=== PATIENT | male | born 1990 | race Caucasian/White ===

== ENCOUNTER 2016-10-27 07:47 | Emergency (ER) | payer MEDICAID, OTHER ==
[~2016-10-27] VITALS: Ht 180.3 cm; Wt 125.0 kg
[~2016-10-27 07:47] MED LIST: NOCURR
[2016-10-27 07:49] VITALS: BP 153/100
[2016-10-27] MEDS ORDERED: PERTUSS(ACELL),DIPH,TET VAC/PF 0.5 ML VIAL IM ONE (08:00)
[2016-10-27] MEDS ORDERED: LIDOCAINE HCL BUFFERED 1% 20 ML VIAL INJ ONE (08:00)
== END 2016-10-27 08:54 | disposition home or self-care (01) ==
LOC: EMS 07:48
DX: S61.212A Laceration without foreign body of right middle finger without damage to nail, initial encounter (principal); S61.214A Laceration without foreign body of right ring finger without damage to nail, initial encounter; S61.216A Laceration without foreign body of right little finger without damage to nail, initial encounter; F17.200 Nicotine dependence, unspecified, uncomplicated; F12.90 Cannabis use, unspecified, uncomplicated; Z88.0 Allergy status to penicillin; X58.XXXA Exposure to other specified factors, initial encounter; Y93.89 Activity, other specified; Y92.89 Other specified places as the place of occurrence of the external cause; Y99.8 Other external cause status
CPT/HCPCS: 12002; 99283; J3490; 90715

== ENCOUNTER 2018-05-30 23:02 | Emergency (ER) | payer MEDICAID, OTHER ==
[~2018-05-30] VITALS: Ht 180.3 cm; Wt 118.2 kg
[2018-05-30] MEDS ORDERED: LIDOCAINE 1% 10 ML VIAL INJ ONE (23:30)
[2018-05-30] MEDS ORDERED: IBUPROFEN 800 MG TABLET PO ONE (23:30)
[2018-05-30] MEDS ORDERED: POVIDONE-IODINE 10% 15 ML SOLUTION UD TP ONE (23:30)
[2018-05-30] MEDS ORDERED: PERTUSS(ACELL),DIPH,TET VAC/PF 0.5 ML VIAL IM ONE (23:30)
[2018-05-31] MEDS ORDERED: BACITRACIN 0.9 GM PACKET OINTMENT TP ONE (01:15)
[2018-05-31 01:29] VITALS: BP 138/80
[2018-05-31] MEDS ORDERED: LIDOCAINE/PF 1% 2 ML VIAL IM ONE (01:30)
== END 2018-05-31 01:31 | disposition home or self-care (01) ==
LOC: EMS 23:03
DX: S61.210A Laceration without foreign body of right index finger without damage to nail, initial encounter (principal); F12.90 Cannabis use, unspecified, uncomplicated; Z88.0 Allergy status to penicillin; W29.0XXA Contact with powered kitchen appliance, initial encounter; Y93.89 Activity, other specified; Y92.89 Other specified places as the place of occurrence of the external cause; Y99.8 Other external cause status
CPT/HCPCS: 12001; 73140; 87070; 90471; 90715; 96372; 99284; J0690; J3490 ×2

== ENCOUNTER 2023-07-22 10:14 | Emergency (ER) | payer OTHER ==
[~2023-07-22] VITALS: Ht 180.3 cm; Wt 138.6 kg
[~2023-07-22 10:14] MED LIST changes: +ACET-2080 PO; -NOCURR
[2023-07-22 10:19] VITALS: TEMP 98.3
[2023-07-22] MEDS: ACETAMINOPHEN 500 MG TABLET PO ONE (10:37)
[2023-07-22] MEDS: IBUPROFEN 600 MG TABLET PO ONE (10:37)
[2023-07-22] MEDS: BACITRACIN 0.9 GM PACKET OINTMENT TP ONE (11:00)
[2023-07-22] MEDS: LIDOCAINE 1% 10 ML VIAL SQ ONE (11:00)
[2023-07-22] MEDS ORDERED: DOXY-354 PO (14:27)
[2023-07-22] MEDS ORDERED: CEPH-558 PO (14:27)
[2023-07-22] MEDS ORDERED: IBUP-1554 PO (14:27)
[2023-07-22] MEDS ORDERED: ACET-2080 PO (14:27)
[2023-07-22 14:50] VITALS: BP 122/81; PULSE 79; RESP 18
== END 2023-07-22 15:12 | disposition home or self-care (01) ==
LOC: EMS 10:14
DX: S51.812A Laceration without foreign body of left forearm, initial encounter (principal); F12.90 Cannabis use, unspecified, uncomplicated; X58.XXXA Exposure to other specified factors, initial encounter; Y93.89 Activity, other specified; Y92.89 Other specified places as the place of occurrence of the external cause; Y99.8 Other external cause status
CPT/HCPCS: 12044; 99284; 73090; J3490